=== PATIENT | female | born 1985 | race Caucasian/White ===

== ENCOUNTER 2019-03-26 21:19 | Emergency (ER) | payer SELFPAY ==
[~2019-03-26] VITALS: Ht 170.2 cm; Wt 82.6 kg
[2019-03-27 00:09] VITALS: BP 113/45
== END 2019-03-27 00:20 | disposition home or self-care (01) ==
LOC: ER 21:24
DX: S90.31XA Contusion of right foot, initial encounter (principal); Z91.030 Bee allergy status; W20.8XXA Other cause of strike by thrown, projected or falling object, initial encounter; Y93.89 Activity, other specified; Y92.89 Other specified places as the place of occurrence of the external cause; Y99.8 Other external cause status
CPT/HCPCS: 73630